=== PATIENT | female | born 1960 | race Caucasian/White ===

== ENCOUNTER 2021-04-02 11:10 | Observation (INO) | payer OTHER, SELFPAY ==
[~2021-04-02] VITALS: Ht 157.5 cm; Wt 72.6 kg
[2021-04-02 11:21] VITALS: BP 133/72
[2021-04-02 12:51] LABS: BASOPHILS # (AUTO) 0.1 K/uL (0.00-0.22); BASOPHILS % (AUTO) 0.8 % (0.0-2.0); EOSINOPHILS # (AUTO) 0.1 K/uL (0-0.4); EOSINOPHILS % (AUTO) 1.4 % (0.0-4.0); HEMATOCRIT 40.1 % (36-48); HEMOGLOBIN 13.6 g/dL (12.0-16.0); LYMPHOCYTES # (AUTO) 1.7 K/uL (2.5-16.5); LYMPHOCYTES % (AUTO) 17.7 % (20.5-51.1); MEAN CORPUSCULAR HEMOGLOBIN 32 pg (27-31); MEAN CORPUSCULAR HGB CONC 34 g/dL (33-37); MEAN CORPUSCULAR VOLUME 93.6 fL (80-94); MONOCYTES % (AUTO) 9.9 % (1.7-9.3); NEUTROPHILS # (AUTO) 6.9 K/uL (1.8-7.7); NEUTROPHILS % (AUTO) 70.2 % (42.2-75.2); PLATELET COUNT (AUTO) 215 K/uL (140-450); RED BLOOD CELL COUNT(AUTO) 4.28 MIL/uL (4.20-5.40); RED CELL DISTRIBUTION WIDTH 13.7 % (11.6-13.7); WHITE BLOOD COUNT (AUTO) 9.8 K/uL (4.8-10.8)
--- NOTE | 2021-04-02 13:03 | NUR ---
Pt ambulated to bed 06.
--- NOTE | 2021-04-02 13:10 | NUR ---
ERMD AT BEDSIDE EXAMINING PT
--- NOTE | 2021-04-02 13:10 | NUR ---
60 Y/O FEMALE C/O NAUSEA, EPIGASTRIC PAIN RADIATING TO RUQ & RIGHT UPPER BACK X 3 DAYS. PT STATES 9/10 BURNING, PRESSURE, INTERMITTENT PAIN RADIATING TO BACK AND ARMPIT. TENDER TOUCH. DENIES VOMITING/DIARRHEA/CONSTIPATION. PMH: HYSTERECTOMY NKA
[2021-04-02 13:14] LABS: ALBUMIN 3.8 g/dL (3.4-5.0); CREATININE 0.8 mg/dL (0.6-1.3); POTASSIUM 3.8 mmol/L (3.5-5.1); TOTAL BILIRUBIN 0.9 mg/dL (0.0-1.0)
[2021-04-02] MEDS ORDERED: KETOROLAC 30 MG/ML VIAL IVP ONE (13:15)
[2021-04-02] MEDS ORDERED: NACL 0.9% 500 ML IV ONE (13:20)
--- NOTE | 2021-04-02 13:21 | NUR ---
US at pt bedside.
[2021-04-02 13:25] LABS: ANION GAP 13.8 (8-16)
[2021-04-02] MEDS ORDERED: AMOX500C25 PO (15:14)
[2021-04-02] MEDS ORDERED: MORPHINE SULFATE 2 MG/ML SYR IVP ONE (15:35)
--- NOTE | 2021-04-02 15:36 | NUR ---
PT REPORTS 3/10 PAIN. REQUESTING FOR MEDICATIONS TO CONTROL PAIN. ERMD MADE AWARE.
--- NOTE | 2021-04-02 15:38 | NUR ---
XRAY AT BEDSIDE
[2021-04-02] MEDS ORDERED: ACETAMINOPHEN 325 MG TAB PO PRN (15:40)
[2021-04-02] MEDS ORDERED: KCL 20 MEQ/WATER INJ PREMIX 200 ML IV PRN (15:40)
[2021-04-02] MEDS ORDERED: POTASSIUM CHLORIDE 10 MEQ TABER PO PRN (15:40)
[2021-04-02] MEDS ORDERED: MAG SULF 2000 MG/WATER PREMIX 50 ML IV PRN (15:40)
[2021-04-02] MEDS ORDERED: ONDANSETRON 4 MG/2 ML VIAL IVP PRN (15:40)
[2021-04-02] MEDS ORDERED: HYDROcodone/APAP 5/325 MG 1 TAB TAB PO PRN (15:40)
[2021-04-02] MEDS ORDERED: MAGNESIUM OXIDE 400 MG TAB PO PRN (15:40)
[2021-04-02] MEDS: NACL 0.9% 1,000 ML IV SCH (15:57)
--- NOTE | 2021-04-02 17:30 | NUR ---
Patient has eyes closed, appears to be resting comfortably in bed. Vital Signs within normal limits. Respirations even and unlabored. Will continue to monitor.
--- NOTE | 2021-04-02 19:19 | NUR ---
Pt report given to LAW FUNES. Transfer of care at this time.
--- NOTE | 2021-04-02 19:40 | NUR ---
PT IS AWAKE AND ALERT. DAUGHTER AT BEDSIDE. ALL NEEDS MET AT THIS TIME. SIDE RAILS X2, BED LOCKED IN LOWEST POSITION.
--- NOTE | 2021-04-02 20:13 | NUR ---
PT AMBULATED TO WITH STEADY GAIT.
--- NOTE | 2021-04-02 20:15 | NUR ---
PT AMUBULATED WITH STEADY GAIT BACK TO BED.
--- NOTE | 2021-04-02 20:20 | NUR ---
REPORT GIVEN TO MARIN MODI.
[2021-04-02 20:50] VITALS: BP 151/79
--- NOTE | 2021-04-02 20:50 | NUR ---
Patient will be admitted to care of . Admited to TELE. Will go to room 104A. Belongings list completed. Report to MARIN MODI.
--- NOTE | 2021-04-02 21:00 | NUR ---
ADMITTED A PATIENT FROM ER VIA WHEELCHAIR. PATIENT A/A/OX4, AMBULATORY. DENIES ANY ABDOMINAL PAIN, NAUSEA AND VOMITING AT THIS TIME. PATIENT NOT IN ANY DISTRESS AND NO COMPLAIN AT THIS TIME. IVF INFUSING ORDERED. ORIENTED THE PATIENT TO THE ROOM SETTING AND USE OF CALL LIGHT SYSTEM. PATIENT VERBALIZED UNDERSTANDING WITH THE POC. CALL LIGHT WITHIN REACH. WILL CONTINUE POC.
[2021-04-02] MEDS: MORPHINE SULFATE 4 MG/ML SYR IVP PRN (21:50)
--- NOTE | 2021-04-02 21:50 | NUR ---
PATIENT CALLED AND COMPLAINING OF ABDOMINAL PAIN 04/05, PRN MORPHINE GIVEN ORDERED. WILL CONTINUE TO OBSERVE.
--- NOTE | 2021-04-03 02:00 | NUR ---
PATIENT ASLEEP WITH VISIBLE CHEST RISE AND FALL NOTED. CALL LIGHT WITHIN REACH. WILL CONTINUE TO OBSERVE.
[2021-04-03 04:00] VITALS: BP 135/80
[2021-04-03] MEDS: NACL 0.9% 1,000 ML IV SCH ×2 (04:10→16:40)
[2021-04-03] MEDS: MORPHINE SULFATE 4 MG/ML SYR IVP PRN (05:52)
--- NOTE | 2021-04-03 07:00 | NUR ---
NO ACUTE EVENTS THROUGHOUT THE NIGHT. PATIENT STABLE. PATIENT NOT IN ANY DISTRESS AND NO COMPLAIN AT THIS TIME. ALL NEEDS ATTENDED. CALL LIGHT WITHIN REACH. WILL ENDORSE THE PATIENT TO THE ONCOMING RN FOR CONTINUITY OF CARE.
--- NOTE | 2021-04-03 07:29 | NUR ---
ENDORSED PATIENT TO MARIN ARELLANO FOR CONTINUITY OF CARE. PATIENT STABLE. SIGNING OFF.
[2021-04-03 07:46] LABS: PROTHROMBIN TIME 10.7 secs (10.8-13.4)
[2021-04-03 07:47] LABS: BASOPHILS % (AUTO) 0.3 % (0.0-2.0); EOSINOPHILS % (AUTO) 0.1 % (0.0-4.0); HEMATOCRIT 37.6 % (36-48); HEMOGLOBIN 12.5 g/dL (12.0-16.0); LYMPHOCYTES # (AUTO) 1.1 K/uL (2.5-16.5); LYMPHOCYTES % (AUTO) 8.5 % (20.5-51.1); MEAN CORPUSCULAR HEMOGLOBIN 32 pg (27-31); MEAN CORPUSCULAR HGB CONC 33 g/dL (33-37); MONOCYTES % (AUTO) 8.1 % (1.7-9.3); NEUTROPHILS # (AUTO) 10.5 K/uL (1.8-7.7); PLATELET COUNT (AUTO) 195 K/uL (140-450); RED BLOOD CELL COUNT(AUTO) 3.96 MIL/uL (4.20-5.40); WHITE BLOOD COUNT (AUTO) 12.7 K/uL (4.8-10.8)
--- NOTE | 2021-04-03 07:51 | NUR ---
RECEIVED REPORT FROM ADHESIVE PRIMER AT BEDSIDE FOR CONTINUITY OF CARE. INITIAL ASSESSMENT INITIATED. PATIENT ALERT AWAKE ORIENTED X4, NOT IN ANY DISTRESS NOTED. WITH IVF ON GOING AND INFUSING WELL. NPO OBSERVED. NEEDS ATTENDED. WILL CONTINUE TO MONITOR.
[2021-04-03 07:59] LABS: ALBUMIN 3.2 g/dL (3.4-5.0); CARBON DIOXIDE 25.4 mmol/L (21-32); CREATININE 0.6 mg/dL (0.6-1.3); MAGNESIUM 2.1 mg/dL (1.8-2.4); POTASSIUM 3.4 mmol/L (3.5-5.1); TOTAL BILIRUBIN 0.8 mg/dL (0.0-1.0)
[2021-04-03 08:00] VITALS: BP 144/71
--- NOTE | 2021-04-03 08:40 | NUR ---
SEEN BY DR. OLIVA AND EXPLAINED THE SURGICAL PROCEDURE.
--- NOTE | 2021-04-03 08:54 | NUR ---
PATIENT HAS BEEN SCREENED AND CATEGORIZED LOW NUTRITION RISK. PATIENT WILL BE SEEN WITHIN 7 DAYS OF ADMISSION. 04/09/[address]
[2021-04-03] MEDS ORDERED: fentaNYL citrate 0.05 MG/ML VIAL ONE (09:56)
[2021-04-03] MEDS ORDERED: SUCCINYLCHOLINE CHLORIDE 200 MG/10 ML VIAL IVP ONE (09:57)
[2021-04-03] MEDS ORDERED: PROPOFOL 200 MG/20 ML VIAL IV ONE (09:57)
[2021-04-03] MEDS ORDERED: MIDAZOLAM 2 MG/2 ML VIAL ONE (09:57)
--- NOTE | 2021-04-03 10:08 | NUR ---
PATIENT OFF FLOOR WENT TO SURGERY.
[2021-04-03] MEDS ORDERED: ceFAZolin 1,000 MG VIAL ONE (10:18)
[2021-04-03] MEDS ORDERED: BUPIVACAINE-MPF/EPI 0.25% 30 ML VIAL INJ ONE (10:18)
[2021-04-03] MEDS ORDERED: SEVOFLURANE 250 ML BTL INH ONE (10:25)
[2021-04-03] MEDS ORDERED: ROCURONIUM 50 MG/5 ML VIAL IV ONE (10:25)
[2021-04-03] MEDS ORDERED: HYDROmorphone 1 MG/ML AMP IVP PRN ×2 (10:35→11:15)
[2021-04-03] MEDS ORDERED: HYDROcodone/APAP 5/325 MG 1 TAB TAB PO PRN (10:35)
[2021-04-03] MEDS ORDERED: MEPERIDINE 50 MG/ML SYR ONE (11:04)
[2021-04-03] MEDS ORDERED: LABETALOL 100 MG/20 ML VIAL ONE (11:07)
[2021-04-03] MEDS ORDERED: MEPERIDINE 25 MG/ML SYR IVP PRN (11:15)
[2021-04-03] MEDS ORDERED: ONDANSETRON 4 MG/2 ML VIAL IVP PRN (11:15)
[2021-04-03] MEDS: LACTATED RINGERS 1,000 ML IV SCH ×2 (11:15→19:35)
[2021-04-03] MEDS ORDERED: diphenhydrAMINE 50 MG/ML VIAL IVP PRN (11:15)
[2021-04-03] MEDS ORDERED: ONDANSETRON 4 MG/2 ML VIAL ONE (11:20)
[2021-04-03] MEDS ORDERED: DEXAMETHASONE 4 MG/ML VIAL ONE (11:20)
[2021-04-03] MEDS ORDERED: SUGAMMADEX SODIUM 200 MG/2 ML VIAL IV ONE (11:20)
--- NOTE | 2021-04-03 11:40 | NUR ---
PATIENT STILL IN SURGERY.
--- NOTE | 2021-04-03 12:30 | NUR ---
PATIENT BACK FROM SURGERY, ALERT AWAKE ORIENTED X4, NOT IN DISTRESS NOTED. ON 6L OXYGEN SATURATING 96 %. WILL CONTINUE TO MONITOR. DAUGHTER JUST CAME TO SEE PATIENT.
[2021-04-03 12:41] VITALS: BP 148/78
[2021-04-03 16:00] VITALS: BP 128/76
--- NOTE | 2021-04-03 17:00 | NUR ---
PATIENT AMBULATES IN THE HALLWAY WITH THE FAMILY, TOLERATED WELL. NO SIGN OF DISTRESS NOTED. NEEDS ATTENDED. WILL CONTINUE TO MONITOR.
--- NOTE | 2021-04-03 19:16 | NUR ---
ENDORSE PATIENT TO THE [employer] WORKER HELPER FOR CONTINUITY OF CARE. PATIENT STABLE.
--- NOTE | 2021-04-03 19:20 | NUR ---
RECEIVED PT SLEEPING ON BED, EASILY AROUSABLE, DENIES ANY PAIN, WITH ABDOMINAL INCISION X3 COVERED WITH DERMABOND, NO SIGNS OF BLEEDING NOTED, PLAN OF CARE DISCUSSED WITH DAUGHTER AT BEDSIDE, ALL QUESTIONS ANSWERED, CALL LIGHT WITHIN REACH.
[2021-04-03 20:40] VITALS: BP 138/70
--- NOTE | 2021-04-03 20:40 | NUR ---
PT SLEEPING, OPEN EYES TO NAME, VITAL SIGNS TAKEN, SAT-86% ON ROOM AIR, PUT PT BACK ON O2 4L NC, SAT WENT UP TO 92%, DENIES ANY PAIN, NO SOB NOTED, MONITORED CLOSELY.
--- NOTE | 2021-04-04 | NUR ---
ROUNDS MADE, SEEN PT SLEEPING, NO SIGNS OF PAIN OR RESP DISTRESS, CONTINUE ON O2 AT 4L VIA NC, IVF INFUSING WELL, CONTINUE TO MONITOR CLOSELY.
--- NOTE | 2021-04-04 03:00 | NUR ---
PT AMBULATED TO BR WITH STEADY GAIT, VOIDED FREELY, DENIES ANY PAIN, USES INCENTIVE SPIROMETRY, TOLERATED WELL, MONITORED CLOSELY.
[2021-04-04] MEDS: LACTATED RINGERS 1,000 ML IV SCH (03:55)
[2021-04-04 04:00] VITALS: BP 124/71
--- NOTE | 2021-04-04 04:00 | NUR ---
PT SLEEPING, EASILY AROUSABLE, VITAL SIGNS TAKEN, SAT ON ROOM AIR-85%, PUT BACK ON O2 AT 4L VIA NC, SAT-89%, INCREASED O2 TO 5L, SAT WENT UP TO 91%, DENIES ANY PAIN AND NO SOB NOTED, IVF INFUSING WELL, MONITORED CLOSELY.
[2021-04-04] MEDS: NACL 0.9% 1,000 ML IV SCH (06:11)
[2021-04-04 06:12] LABS: PROTHROMBIN TIME 11.6 secs (10.8-13.4)
[2021-04-04 06:28] LABS: BASOPHILS % (AUTO) 0.1 % (0.0-2.0); HEMATOCRIT 33.2 % (36-48); HEMOGLOBIN 11.1 g/dL (12.0-16.0); LYMPHOCYTES # (AUTO) 1.1 K/uL (2.5-16.5); LYMPHOCYTES % (AUTO) 9.6 % (20.5-51.1); MEAN CORPUSCULAR HEMOGLOBIN 32 pg (27-31); MEAN CORPUSCULAR HGB CONC 33 g/dL (33-37); MEAN CORPUSCULAR VOLUME 94.8 fL (80-94); MONOCYTES # (AUTO) 0.7 K/uL (0.8-1.0); MONOCYTES % (AUTO) 6.1 % (1.7-9.3); NEUTROPHILS # (AUTO) 10.1 K/uL (1.8-7.7); NEUTROPHILS % (AUTO) 84.2 % (42.2-75.2); PLATELET COUNT (AUTO) 173 K/uL (140-450); RED CELL DISTRIBUTION WIDTH 13.6 % (11.6-13.7)
--- NOTE | 2021-04-04 06:32 | NUR ---
PT SLEEPING, EASILY AROUSABLE, SAT-94% ON 5L NC, DENIES ANY PAIN AND NO SOB NOTED, IVF INFUSING WELL, MONITORED CLOSELY.
[2021-04-04 06:39] LABS: ALBUMIN 2.7 g/dL (3.4-5.0); ANION GAP 9.7 (8-16); CARBON DIOXIDE 25.9 mmol/L (21-32); CREATININE 0.6 mg/dL (0.6-1.3); POTASSIUM 3.6 mmol/L (3.5-5.1); TOTAL BILIRUBIN 0.8 mg/dL (0.0-1.0)
--- NOTE | 2021-04-04 07:30 | NUR ---
PT AWAKE, NO SIGNS OF DISTRESS, BEDSIDE REPORT GIVEN TO RN ELIAS FOR CONTINUITY OF CARE.
--- NOTE | 2021-04-04 07:32 | NUR ---
RECEIVED REPORT AND POC FROM CARE ADVOCATE RN. PATIENT RESTING. NO S/S OF DISTRESS. CALL LIGHT WITHIN REACH. ALL SAFETY PRECAUTIONS IN PLACE.
--- NOTE | 2021-04-04 09:30 | NUR ---
CHECKED ON PATIENT. NO S/S OF DISTRESS. CALL LIGHT WITHIN REACH. ALL SAFETY PRECAUTIONS IN PLACE. WILL CONTINUE TO MONITOR.
--- NOTE | 2021-04-04 11:45 | NUR ---
CHECKED ON PATIENT. PATIENT DOES NOT COMPLAIN OF ANY PAIN. EDUCATED PATIENT ON USE OF INCENTIVE SPIROMETER. PATIENT VERBALIZED UNDERSTANDING. WILL CONTINUE TO MONITOR.
--- NOTE | 2021-04-04 13:00 | NUR ---
CHECKED ON PATIENT. NO S/S OF DISTRESS. CALL LIGHT WITHIN REACH. ALL SAFETY MEASURES IN PLACE.
[2021-04-04] MEDS ORDERED: ACET-9525 PO (14:29)
--- NOTE | 2021-04-04 16:05 | NUR ---
DISCUSSED POC AND DISCHARGE INSTRUCTIONS WITH PATIENT. PATIENT VERBALIZED UNDERSTANDING. CALL LIGHT IN PLACE. ALL SAFETY MEASURES IN PLACE.
[2021-04-04 16:36] VITALS: BP 155/85
--- NOTE | 2021-04-04 17:10 | NUR ---
PATIENT DISCHARGED FROM FLOOR. REMOVED IV, IV CATH IN PLACE. VITAL SIGNS STABLE. Addendum: 04/05/21 at 1645 by Didi Flannery RN RN DISCONTINUED IVF UPON DISCHARGE.
--- NOTE | 2021-04-05 20:03 | NUR ---
LATE ENTRY- 039% NS DISCONTINUED AT 1425 AND 0.9% NS IVF DISCONTINUED AT 2049
== END 2021-04-04 17:15 | disposition home or self-care (01) ==
LOC: MED 11:10 → MMU 15:41 → INTOOBSV 15:41 → MTU 19:33 → MMU 04-04 03:19
PROVIDERS: ADMIT Hospitalist; ATTEND Hospitalist
DX: K81.0 Acute cholecystitis (principal); D72.829 Elevated white blood cell count, unspecified; E87.6 Hypokalemia; Z20.822 Contact with and (suspected) exposure to COVID-19; Z79.899 Other long term (current) drug therapy
CPT/HCPCS: 36415; 47562; 71045; 76705; 80053; 83690; 83735; 84484; 85025; 85379; 85610; 87081; 87426; 93005; 96361; 96374; 96375; 96376; 99285; G0378; J0330; J0690; J1100; J1170; J1885; J2175; J2250; J2270; J2405; J2704; J3010; J3490; J7030; J7120

== ENCOUNTER 2023-11-05 15:48 | Emergency (ER) | payer OTHER ==
[~2023-11-05] VITALS: Ht 160 cm; Wt 72.6 kg
[~2023-11-05 15:48] MED LIST: ACET-9525 PO
[2023-11-05 15:57] VITALS: BP 130/83; PULSE 95; RESP 18; TEMP 98.1; O2SAT 97
[2023-11-05 16:15] VITALS: O2SAT 97
[2023-11-05 16:38] LABS: APPEARANCE,URINE CLEAR (CLEAR); BILIRUBIN,URINE NEGATIVE (NEGATIVE); BLOOD, URINE NEGATIVE (NEGATIVE); COLOR,URINE YELLOW (YELLOW); LEUKOCYTE ESTERASE ,URINE NEGATIVE (NEGATIVE); NITRITE, URINE NEGATIVE (NEGATIVE); PROTEIN,URINE NEGATIVE (NEGATIVE); UGLUCOSE NEGATIVE (NEGATIVE); UROBILINOGEN,URINE 0.2 EU/dL (0.2 - 1)
[2023-11-05] MEDS: ONDANSETRON 4 MG/2 ML VIAL IVP ONE (16:42)
[2023-11-05] MEDS: KETOROLAC 30 MG/ML VIAL IVP ONE (16:43)
[2023-11-05 16:48] LABS: BASOPHILS % (AUTO) 0.3 % (0.0-2.0); EOSINOPHILS % (AUTO) 0.4 % (0.0-4.0); HEMATOCRIT 38.7 % (36-48); HEMOGLOBIN 13.3 g/dL (12.0-16.0); LYMPHOCYTES # (AUTO) 1.6 K/uL (2.5-16.5); LYMPHOCYTES % (AUTO) 12.6 % (20.5-51.1); MEAN CORPUSCULAR HEMOGLOBIN 32 pg (27-31); MEAN CORPUSCULAR HGB CONC 34 g/dL (33-37); MEAN CORPUSCULAR VOLUME 93.7 fL (80-94); MONOCYTES # (AUTO) 1.1 K/uL (0.8-1.0); MONOCYTES % (AUTO) 9.1 % (1.7-9.3); NEUTROPHILS # (AUTO) 9.6 K/uL (1.8-7.7); NEUTROPHILS % (AUTO) 77.6 % (42.2-75.2); PLATELET COUNT (AUTO) 183 K/uL (140-450); RED BLOOD CELL COUNT(AUTO) 4.13 MIL/uL (4.20-5.40); RED CELL DISTRIBUTION WIDTH 13.5 % (11.6-13.7); WHITE BLOOD COUNT (AUTO) 12.3 K/uL (4.8-10.8)
[2023-11-05 17:00] LABS: ANION GAP 11.8 (8-16); CALCIUM 8.4 mg/dL (8.5-10.1); CREATININE 0.8 mg/dL (0.6-1.3); POTASSIUM 3.8 mmol/L (3.5-5.1)
[2023-11-05 17:04] LABS: ALBUMIN 3.5 g/dL (3.4-5.0); BILIRUBIN,DIRECT 0.1 mg/dL (0.0-0.3); TOTAL BILIRUBIN 0.5 mg/dL (0.0-1.0)
[2023-11-05] MEDS ORDERED: METR-435 PO (17:44)
[2023-11-05] MEDS ORDERED: ONDA8TAB87 PO (17:44)
[2023-11-05] MEDS ORDERED: IBUP-2213 PO (17:44)
[2023-11-05] MEDS ORDERED: CIPR500T4 PO (17:44)
== END 2023-11-05 17:58 | disposition home or self-care (01) ==
LOC: MED 15:48
DX: K57.92 Diverticulitis of intestine, part unspecified, without perforation or abscess without bleeding (principal); Z79.899 Other long term (current) drug therapy
CPT/HCPCS: 36415; 74176; 80048; 80076; 81003; 83690; 85025; 96374; 96375; 99285; J1885; J2405